=== PATIENT | male | born 1950 | race Caucasian/White ===

== ENCOUNTER 2020-08-10 19:24 | Emergency (ER) | payer MEDICARE, OTHER ==
[2020-08-10 19:55] LABS: CHLORIDE,CL 110 mmol/L (98-107); SODIUM,NA 140 mmol/L (136-145)
--- NOTE | 2020-08-10 21:24 | EDM.PDOC ---
ED HPI GENERAL MEDICAL PROBLEM - General Chief Complaint: Behavioral/Psych Stated Complaint: suicide attempt, unresponsive Time Seen by Provider: 08/10/20 19:32 Source of Information: Reports: EMS, Group Home Records History Limitations: Reports: Other (Comatose) - History of Present Illness Onset: Today, Sudden Duration: Minutes: Location: Reports: Generalized Context: Reports: Trauma - Related Data Allergies Allergy/AdvReac Type Severity Reaction Status Date / Time No Known Allergies Allergy Verified 10/01/15 21:16 Home Meds: Home Meds Acetaminophen [Tylenol] 650 mg PO Q4H PRN 10/02/15 [History] Albuterol Sulfate [Proair Respiclick] 2 - 4 puff IH Q6H 10/02/15 [History] Aspirin [Halfprin] 1 tab PO DAILY 10/02/15 [History] Fenofibrate,Micronized [Fenofibrate] 200 mg PO DAILY 10/02/15 [History] Fluticasone Propionate [Flovent HFA 44 MCG] 2 puff INH DAILY 10/02/15 [History] Ibuprofen 400 mg PO Q6H PRN 10/02/15 [History] LORazepam [Ativan] 1 mg PO TID 10/02/15 [History] Magnesium Hydroxide [Milk of Magnesia] 30 ml PO DAILY PRN 10/02/15 [History] Paliperidone [Invega] 1 tab PO DAILY 10/02/15 [History] Simvastatin [Zocor] 20 mg PO BEDTIME 10/02/15 [History] Tolnaftate [Antifungal] 1 spray TOP DAILY PRN 10/02/15 [History] amLODIPine [Norvasc] 5 mg PO DAILY 10/02/15 [History] Past Medical History HEENT History: Reports: Cataract, Hard of Hearing, Other (See Below) Other HEENT History: hypermetropia; color vision deficiencies; astigmatism; presbyopia Cardiovascular History: Reports: High Cholesterol, Hypertension Respiratory History: Reports: COPD, Sleep Apnea Gastrointestinal History: Reports: GERD Other Gastrointestinal History: constipation Genitourinary History: Reports: Chronic Renal Insuffiency Musculoskeletal History: Reports: None Neurological History: Reports: Headaches, Chronic, Other (See Below) Other Neuro History: anxiety; personality disorder Psychiatric History: Reports: Anxiety, Depression, Psych Hospitalization(s) Other Psychiatric History: schizoaffective disorder, Endocrine/Metabolic History: Reports: None, Obesity/BMI 30+ Hematologic History: Reports: None Immunologic History: Reports: None Oncologic (Cancer) History: Reports: None Dermatologic History: Reports: None ED ROS GENERAL - Review of Systems Review Of Systems: Unable To Obtain Reason Not Obtained: Comatose - Physical Exam Exam: See Below Exam Limited By: Other (Comatose) General Appearance: Other (Comatose) Eye Exam: Bilateral Eye: Other (Pupils 3mm and fixed) Ears: Normal External Exam Nose: Normal Inspection Throat/Mouth: Normal Inspection Head Exam: Atraumatic Neck: Other (Bruising to left neck No swelling No hematoma Trachea mid-line) Respiratory/Chest: Lungs Clear Cardiovascular: Regular Rate, Rhythm GI/Abdominal: Soft Neuro Exam (Abbreviated): Other (GCS 3) Extremities: Other (Abrasions and skin tears to upper and lower extremities) Course - Orders/Labs/Meds Orders: Active Orders 24 hr Category Date Time Status EKG Documentation Completion [RC] ASDIRECTED Care 08/10/20 19:33 Active Cervical Spine wo Cont [CT] Stat Exams 08/10/20 19:33 Taken Head wo Cont [CT] Stat Exams 08/10/20 19:32 Ordered Labs: Laboratory Tests 08/10/20 08/10/20 Range/Units 19:32 19:32 WBC 17.7 H (4.0-10.2) K/uL RBC 4.41 (4.33-5.41) M/uL Hgb 13.2 (13.1-16.8) g/dL Hct 40.5 (39.0-49.0) % MCV 91.8 (84.0-98.0) fL MCH 29.9 (28.2-33.3) pg MCHC 32.6 (31.7-36.0) g/dL RDW 13.4 (11.2-14.1) % Plt Count 312 (150-350) K/uL Neut % (Auto) 90.3 H (45.0-80.0) % Lymph % (Auto) 1.7 L (10.0-50.0) % Bureau % (Auto) 7.8 (2.0-14.0) % Eos % (Auto) 0.1 (0.0-5.0) % Baso % (Auto) 0.1 (0.0-2.0) % Neut # (Auto) 15.95 H (1.40-7.00) K/uL Lymph # (Auto) 0.30 L (0.50-3.50) K/uL Bureau # (Auto) 1.38 H (0.00-1.00) K/uL Eos # (Auto) 0.01 (0.00-0.50) K/uL Baso # (Auto) 0.02 (0.00-0.20) K/uL Sodium 140 (136-145) mmol/L Potassium 3.6 (3.5-5.1) mmol/L Chloride 110 H (98-107) mmol/L Carbon Dioxide 20.3 L (21.0-32.0) mmol/L BUN 24 H (7-18) mg/dL Creatinine 1.85 H (0.51-1.17) mg/dL Est Cr Clr Drug Dosing TNP Estimated GFR (MDRD) 36 mL/min Glucose 173 H (74-106) mg/dL Calcium 8.9 (8.5-10.1) mg/dL Total Bilirubin 0.3 (0.2-1.0) mg/dL AST 26 (15-37) U/L ALT 30 (12-78) U/L Alkaline Phosphatase 45 L (46-116) IU/L Total Protein 5.5 L (6.4-8.2) g/dL Albumin 2.9 L (3.4-5.0) g/dL Ethyl Alcohol 0.001 (0.000-0.080) g/dL - Re-Assessments/Exams Free Text/Narrative Re-Assessment/Exam: 08/10/20 21:20 Pt with GCS of 3 and unresponsive but hemodynamically stable Able to maintain airway and RA sats remain 95% Pt sats 95% on 2 L Isbell placed Pt unchanged Per radiologist CT head without acute findings CT neck with no fractures and soft tissues and soft structures intact D/W Dr Bales at [facility] Will accept in transfer D/W brother who is POA Does want pt transferred and treated but is DNR if patient codes Transfer via EMS Pt is able to maintain airway and does not require intubation at this point Departure - Departure Time of Disposition: 21:30 Disposition: DC/Tfer to [facility] 02 Clinical Impression: Hanging Qualifiers: Encounter type: initial encounter Qualified Code(s): T71.164A - Asphyxiation due to hanging, undetermined, initial encounter - Discharge Information *PRESCRIPTION DRUG MONITORING PROGRAM REVIEWED*: Not Applicable *COPY OF PRESCRIPTION DRUG MONITORING REPORT IN PATIENT RUDY: Not Applicable Referrals: Sangita Wilcox PA [Primary Care Provider] - - My Orders Last 24 Hours: My Active Orders 08/10/20 19:32 Head wo Cont [CT] Stat 08/10/20 19:33 EKG Documentation Completion [RC] ASDIRECTED Cervical Spine wo Cont [CT] Stat - Assessment/Plan Last 24 Hours: My Active Orders 08/10/20 19:32 Head wo Cont [CT] Stat 08/10/20 19:33 EKG Documentation Completion [RC] ASDIRECTED Cervical Spine wo Cont [CT] Stat
== END 2020-08-10 21:44 ==
LOC: LL.ED 19:24
DX: T71.164A Asphyxiation due to hanging, undetermined, initial encounter (principal); E78.00 Pure hypercholesterolemia, unspecified; J44.9 Chronic obstructive pulmonary disease, unspecified; I12.9 Hypertensive chronic kidney disease with stage 1 through stage 4 chronic kidney disease, or unspecified chronic kidney disease; N18.9 Chronic kidney disease, unspecified; F41.9 Anxiety disorder, unspecified; E66.9 Obesity, unspecified; Z79.82 Long term (current) use of aspirin; Z79.899 Other long term (current) drug therapy
CPT/HCPCS: 36415; 51702; 70450; 72125; 80053; 80307; 85025; 93005; 99285-25

== ENCOUNTER 2024-11-30 19:08 | Emergency (ER) | payer OTHER, MEDICARE ==
[2024-11-30] MEDS ORDERED: Sodium Chloride 0.9% 10 ML Syringe FLUSH PRN (19:12)
[2024-11-30] MEDS: Albuterol/Ipratropium 3.0-0.5 MG/3 ML Neb Soln NEB ONE ×2 (19:24→21:15)
[2024-11-30] MEDS: Lactated Ringers 1,000 ML IV SCH (19:25)
[2024-11-30] MEDS: LORazepam 2 MG/ML SDV IVPUSH ONE ×2 (19:37→21:14)
[2024-11-30] MEDS ORDERED: Naloxone 0.4 MG/ML SDV IVPUSH PRN (19:42)
[2024-11-30 19:47] LABS: BASOPHILS ABSOLUTE AUTO 0.01 K/uL (0.00-0.20); BASOPHILS PERCENT AUTO 0.1 % (0.0-2.0); EOSINOPHILS ABSOLUTE AUTO 0.16 K/uL (0.00-0.50); EOSINOPHILS PERCENT AUTO 1.3 % (0.0-5.0); HEMATOCRIT 52.5 % (39.0-49.0); HEMOGLOBIN 17.9 g/dL (13.1-16.8); IMMATURE GRAN ABSOLUTE AUTO 0.09 10^3/uL (0.00-0.04); IMMATURE GRAN PERCENT AUTO 0.7 % (0.0-0.4); LYMPHOCYTES ABSOLUTE AUTO 0.27 K/uL (0.50-3.50); LYMPHOCYTES PERCENT AUTO 2.2 % (10.0-50.0); MEAN CORPUSCULAR HEMOGLOBIN 30.2 pg (28.2-33.3); MEAN CORPUSCULAR HGB CONC 34.1 g/dL (31.7-36.0); MEAN CORPUSCULAR VOLUME 88.5 fL (84.0-98.0); MONOCYTES ABSOLUTE AUTO 0.96 K/uL (0.00-1.00); MONOCYTES PERCENT AUTO 7.6 % (2.0-14.0); NEUTROPHILS ABSOLUTE AUTO 11.06 K/uL (1.40-7.00); NEUTROPHILS PERCENT AUTO 88.1 % (45.0-80.0); PLATELET COUNT,PLT 180 K/uL (150-350); RED BLOOD CELL COUNT 5.93 M/uL (4.33-5.41); RED CELL DISTRIBUTION WIDTH 13.1 % (11.2-14.1); WHITE BLOOD CELL COUNT,WBC 12.6 K/uL (4.0-10.2)
[2024-11-30] MEDS: fentaNYL 100 MCG/2 ML SDV ONE (19:59)
[2024-11-30] MEDS: fentaNYL 50 MCG/ML SDV IVPUSH ONE (20:00)
[2024-11-30 20:03] LABS: INR 1.1 (0.9-1.1)
[2024-11-30 20:09] LABS: LACTIC ACID 3.1 mmol/L (0.4-2.0)
[2024-11-30 20:11] LABS: CORONAVIRUS COVID-19 NAA NEGATIVE (NEGATIVE); INFLUENZA A NAA NEGATIVE (NEGATIVE); INFLUENZA B NAA NEGATIVE (NEGATIVE); RESPIRATORY SYNCYTIAL VIR NAA NEGATIVE (NEGATIVE)
[2024-11-30 20:13] LABS: MAGNESIUM 1.5 mg/dL (1.8-2.4)
[2024-11-30 20:26] LABS: ALANINE AMINOTRANSFERASE,ALT 22 U/L (12-78); ALBUMIN 2.8 g/dL (3.4-5.0); ALKALINE PHOSPHATASE 81 IU/L (46-116); ANION GAP 12.8 meq/L (7-15); ASPARTATE AMNIOTRANSFERASE,AST 16 U/L (15-37); BILIRUBIN TOTAL 0.5 mg/dL (0.2-1.0); BLOOD UREA NITROGEN,BUN 19 mg/dL (7-18); CALCIUM 8.8 mg/dL (8.5-10.1); CARBON DIOXIDE,CO2 22.2 mmol/L (21.0-32.0); CHLORIDE,CL 106 mmol/L (98-107); CREATININE 1.46 mg/dL (0.51-1.17); GLUCOSE RANDOM 141 mg/dL (70-99); LIPASE 39 U/L (16-77); POTASSIUM,K 4.1 mmol/L (3.5-5.1); PROTEIN TOTAL,TP 6.2 g/dL (6.4-8.2); SODIUM,NA 141 mmol/L (136-145)
[2024-11-30 20:27] LABS: ESTIMATED GFR 50 mL/min (>=60)
[2024-11-30] MEDS: Cefepime 2 GM Vial IVPUSH ONE (21:15)
[2024-11-30] MEDS: VANCOmycin 2 GM/400 ML 2 GM in Premix Bag 1 BAG IV ONE (21:15)
[2024-11-30] MEDS: VANCOmycin 1 GM SDV ONE (21:16)
[2024-11-30] MEDS: OLANZapine 10 MG Vial IM ONE (21:49)
[2024-11-30 22:11] VITALS: PULSE 114
[2024-11-30 22:12] VITALS: BP 144/73
== END 2024-11-30 21:50 ==
LOC: LL.ED 19:08
DX: A41.9 Sepsis, unspecified organism (principal); R65.20 Severe sepsis without septic shock; G93.41 Metabolic encephalopathy; I12.9 Hypertensive chronic kidney disease with stage 1 through stage 4 chronic kidney disease, or unspecified chronic kidney disease; N18.9 Chronic kidney disease, unspecified; E78.00 Pure hypercholesterolemia, unspecified; J44.9 Chronic obstructive pulmonary disease, unspecified; F17.210 Nicotine dependence, cigarettes, uncomplicated; Z79.899 Other long term (current) drug therapy; Z79.82 Long term (current) use of aspirin
CPT/HCPCS: 0241U; 36415; 51702; 70450; 71045; 80053; 83605; 83690; 83735; 83880; 84484; 85025; 85610; 87040; 93005; 93010; 94640; 94761; 96361; 96365; 96375; 96376; 99284; 99285-25; A9270-GY; J0692; J2060; J3010; J3372; J7120